=== PATIENT | female | born 1950 | race Caucasian/White ===

== ENCOUNTER → 2019-06-27 | Outpatient (REF) | payer BC | LOC: M LAB REF 18:19 | PROVIDERS: ATTEND Internal Medicine Endocrinology, Diabetes & Metabolism | DX: E04.1 Nontoxic single thyroid nodule (principal) ==

== ENCOUNTER → 2021-08-05 | Outpatient (CLI) | payer MEDICARE ==
[~2021-08-05] MED LIST: ALEN70TA82 PO; CEFD1CAP8 PO; HYDR-3713 PO; OXYB5TAB10 PO; POTA10808 PO; PYRI1TAB5 PO; TAMS1CAP17 PO
--- NOTE | 2021-08-05 13:11 | REP ---
INDICATION: CALCULUS OF KIDNEY *LABS 1ST, EKG 2ND, XRAY 3RD*. COMPARISON: PA and lateral chest, 04/11/2014. TECHNIQUE: Upright PA and lateral chest images were obtained. FINDINGS: There is cardiomegaly and aortic ectasia consistent with benign essential hypertension. The lungs are clear. There is an azygous lobe, as a normal variant of the upper lobe of the right lung. The upper abdominal bowel gas pattern is normal. There is mild multilevel degenerative disc disease of the thoracic spine. IMPRESSION: Findings consistent with hypertension. No evidence of acute cardiopulmonary pathology. <Electronically signed by Nadeem Barbosa > 08/05/21 [id number]
[2021-08-05 13:25] LABS: BASO % 0.4 % (0.0-1.0); EOS # 0.2 10^3/uL (0.0-0.5); EOS % 3.2 % (0.0-3.0); HEMATOCRIT 42.4 % (36.0-47.0); HEMOGLOBIN 14.4 g/dl (12.0-15.5); LYMPH # 1.3 10^3/uL (1.5-5.0); LYMPH % 23.6 % (24.0-44.0); MEAN CORPUSCULAR HEMOGLOBIN 30.5 pg (27.0-33.0); MEAN CORPUSCULAR VOLUME 89.8 fl (80.0-96.0); MONO # 0.3 10^3/uL (0.0-0.8); MONO % 6.4 % (2.0-8.0); NEUTROPHILS # 3.5 10^3/uL (1.5-8.5); PLATELET COUNT, AUTOMATED 238 10^3/uL (150-450); RED BLOOD COUNT 4.72 10^6/uL (4.00-5.40); WHITE BLOOD COUNT 5.3 10^3/uL (4.0-10.0)
--- NOTE | 2021-08-05 13:45 | ECGEPIP ---
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
[2021-08-05 13:54] LABS: ALBUMIN 3.8 GM/DL (3.2-5.2); ALT/SGPT 19 U/L (12-78); BILIRUBIN,TOTAL 0.7 MG/DL (0.2-1.0); BLOOD UREA NITROGEN 23 MG/DL (7-18); CALCIUM LEVEL 9.2 MG/DL (8.8-10.2); CARBON DIOXIDE LEVEL 27 MEQ/L (21-32); CHLORIDE LEVEL 110 MEQ/L (98-107); GLOMERULAR FILTRATION RATE > 60.0 (>39); GLUCOSE, FASTING 96 MG/DL (70-100); SODIUM LEVEL 143 MEQ/L (136-145); TOTAL PROTEIN 7.1 GM/DL (6.4-8.2)
== END ==
LOC: M LAB 12:30
PROVIDERS: ATTEND Urology
DX: N20.0 Calculus of kidney (principal); I10 Essential (primary) hypertension
CPT/HCPCS: 36415; 71046; 80053; 85025; 93005; G0463

== ENCOUNTER 2021-08-06 14:40 | Day surgery (SDC) | payer MEDICARE ==
[~2021-08-06] VITALS: Ht 157.5 cm; Wt 53.0 kg
[2021-08-06] MEDS ORDERED: TAMS1CAP17 PO (15:05)
[2021-08-06] MEDS ORDERED: CEFD1CAP8 PO (15:05)
[2021-08-06] MEDS ORDERED: MORPHINE 2 MG/ML 1ML VIAL (J2270) IV ONE (15:40)
[2021-08-06] MEDS ORDERED: LR 1,000 ML IV ONE (15:40)
[2021-08-06] MEDS ORDERED: SCOPOLAMINE 1MG TRANSDERMAL PATCH TOP ONE (15:40)
[2021-08-06] MEDS ORDERED: MIDAZOLAM INJ 2MG/2ML VIAL (J2250 PER 1MG) As Ordered ONE (15:54)
[2021-08-06] MEDS ORDERED: fentaNYL 100 MCG/2 ML INJECTION (J3010) As Ordered ONE (15:55)
[2021-08-06] MEDS ORDERED: propofoL 200 MG/20 ML VIAL As Ordered ONE (16:00)
[2021-08-06] MEDS ORDERED: CONRAY-60 60% 50ML VIAL (Q9961) As Ordered ONE (16:02)
[2021-08-06] MEDS ORDERED: CIPROFLOXACIN 400 MG in IV 1 EA IV ONE (16:15)
[2021-08-06] MEDS ORDERED: ROCURONIUM BROMIDE 50 MG/5 ML VIAL As Ordered ONE (16:28)
[2021-08-06] MEDS ORDERED: LIDOCAINE 2% 100MG/5ML SDV (FOR ANES.) As Ordered ONE (16:28)
[2021-08-06] MEDS ORDERED: ACETAMINOPHEN 1000MG 100ML IV BTL (OFIRMEV) (J0131 PER 10MG) As Ordered ONE (16:29)
[2021-08-06] MEDS ORDERED: ePHEDrine SULFATE 25 MG/5 ML(5MG/ML) SYRINGE As Ordered ONE (16:34)
[2021-08-06] MEDS ORDERED: dexameTHASONE 4 MG/ML 1ML VIAL (J1100 PER 1MG) As Ordered ONE (16:35)
[2021-08-06] MEDS ORDERED: ONDANSETRON 4MG/2ML VIAL As Ordered ONE (16:35)
--- NOTE | 2021-08-06 17:02 | REP ---
INDICATION: BILATERAL STENT PLACEMENT. COMPARISON: None. TECHNIQUE: Four views. 27 seconds of fluoroscopy time is reported. FINDINGS: A sequence of 4 last image hold fluoroscopically obtained spot radiographs of the abdomen document bilateral ureteral cannulation, contrast injection, and stent placement. IMPRESSION: Procedural imaging. <Electronically signed by Pradeep Jones > 08/06/21 [id number]
[2021-08-06] MEDS ORDERED: HYDR-3713 PO (17:04)
[2021-08-06] MEDS ORDERED: OXYB5TAB10 PO (17:04)
[2021-08-06] MEDS ORDERED: PYRI1TAB5 PO (17:04)
[2021-08-06] MEDS ORDERED: ONDANSETRON 4MG/2ML VIAL IV PRN (17:25)
[2021-08-06] MEDS ORDERED: LR 1,000 ML IV SCH ×2 (17:25)
[2021-08-06] MEDS ORDERED: oxyCODONE 5MG TAB PO PRN (17:25)
[2021-08-06 17:50] VITALS: BP 121/78
--- NOTE | 2021-08-12 14:20 | ROOPDOC ---
[facility] Report Of Operation Report of Operation DATE OF PROCEDURE: 08/12/21 PREPROCEDURE DIAGNOSES: [Bilateral renal stones, right ureteral stones, bilateral hydronephrosis]. POSTPROCEDURE DIAGNOSES: [Same]. PROCEDURE PERFORMED: [Cystoscopy, fluoroscopy, bilateral retrograde pyelography, bilateral ureteral stent placement, right rigid ureteroscopy with laser lithotripsy and basket stone extraction]. SURGEON: [Mehrdad Bush, MANAGER INCOME TAX: [None], MD ANESTHESIA: [General]. ESTIMATED BLOOD LOSS: Approximately [minimal] mL. COMPLICATIONS: [None]. REMARKS: [70-year-old white female. History of stones. Was seen in the office by Dr. Mccoy. Pain on the right side. CT demonstrated bilateral hydronephrosis, bilateral UPJ stones and right ureteral stones. Surgery was arranged. No guarantees were given. Risks were discussed such as infection, bleeding, pain, scarring, injury to urinary tract, failure of surgery, need for more surgery and others. Informed consent was obtained.]. FINDINGS: SPECIMENS REMOVED: [Right ureteral stone] PROCEDURE NOTE: . DESCRIPTION OF PROCEDURE: [I met with the patient in the preop area before surgery. She was still having pain on the right side. Informed consent obtained. Questions answered. Patient wished to proceed. Patient brought to the OR room. Supine position at first. General anesthesia secured without difficulty. Dorsal lithotomy position then. Well padded. Prepping and draping in the usual sterile fashion. Timeout performed. Surgery done under antimicrobial coverage. Cystoscopy was performed with a rigid cystoscope. No stone in the bladder. A retrograde pyelogram was obtained on the left under fluoroscopic guidance. Contrast was injected gently with a 5 Surinamese open-ended ureteral catheter. After opacifying the system, a 6 Surinamese stent was placed using the Seldinger technique. No trouble in passing the wire up the ureter. Attention was then directed to the right side. Another retrograde pyelogram was obtained. Contrast was injected gently using a 5 Surinamese open-ended ureteral catheter. Such was done under fluoroscopic guidance. After this a wire was advanced up the ureter as seen using fluoroscopy. With the wire in place as a safety wire, rigid ureteroscopy was performed. Multiple stones were encountered in the ureter. Laser lithotripsy was needed. Fragments were extracted with a stone basket. Specimen was collected and handed off. I passed the ureteroscope to the renal pelvis. No stones remained at the end. Using the Seldinger technique a 6 Surinamese stent was placed. Proper positioning was confirmed using fluoroscopy and direct vision. Patient tolerated everything well left the room in satisfactory condition. Plan is ESWL one side followed by the other.]. WAYNE BUSH MD Aug 12, 2021 14:20
[2021-08-13 10:08] LABS: CA Oxalate Dihy 90 % (.); Ca Ox Monohydrate 10 % (.); Size 2x2 mm (.)
== END 2021-08-06 18:27 | disposition home or self-care (01) ==
LOC: M SDC 14:40
PROVIDERS: ATTEND Urology
DX: N13.2 Hydronephrosis with renal and ureteral calculous obstruction (principal); Z91.040 Latex allergy status
CPT/HCPCS: 52332; 52356; 74420; 82365; 88300; C1769; C2617; J0131; J0744; J1100; J2250; J2270; J2405; J3010; Q9961; U0002

== ENCOUNTER → 2021-08-16 | Outpatient (CLI) | payer MEDICARE ==
[~2021-08-16] MED LIST changes: -ALEN70TA82 PO; -POTA10808 PO
== END ==
LOC: M LABSMTC 11:05
PROVIDERS: ATTEND Anesthesiology
DX: Z01.812 Encounter for preprocedural laboratory examination (principal); Z20.822 Contact with and (suspected) exposure to COVID-19

== ENCOUNTER 2021-08-19 12:00 | Day surgery (SDC) | payer MEDICARE ==
[~2021-08-19] VITALS: Ht 154.9 cm; Wt 53.4 kg
[~2021-08-19 12:00] MED LIST changes: +CIPROFLOXACIN 400 MG in IV 1 EA IV ONE; +LIDOCAINE 1% MDV 20ML VIAL SQ PRN; +LIDOCAINE 2% 100MG/5ML SDV (FOR ANES.) As Ordered ONE; +LR 1,000 ML IV ONE; +MIDAZOLAM INJ 2MG/2ML VIAL (J2250 PER 1MG) As Ordered ONE; +ONDANSETRON 4MG/2ML VIAL As Ordered ONE; +dexameTHASONE 4 MG/ML 1ML VIAL (J1100 PER 1MG) As Ordered ONE; +fentaNYL 100 MCG/2 ML INJECTION (J3010) As Ordered ONE; +propofoL 200 MG/20 ML VIAL As Ordered ONE
--- NOTE | 2021-08-19 12:29 | REP ---
INDICATION: KUB BEFORE SDC. COMPARISON: KUB obtained 08/06/2021 using a portable C-arm device during bilateral retrograde pyelography and stent placement. FINDINGS: Bilateral pigtail stents are again identified and are essentially unchanged. The proximal portion of each is in the region of the renal pelvis respectively in the distal portion of each is in the region of the urinary bladder. Bilateral calcifications are seen superimposed over each nephric silhouette in a limited fashion on this KUB exam. No definite abnormal calcifications are seen along the course of either pigtail stent. The intestinal gas pattern is nonspecific. The osseous structures are within normal limits for the patient's age. IMPRESSION: As above <Electronically signed by Dejon Bonilla > 08/19/21 [id number]
--- NOTE | 2021-08-19 13:59 | ROOPDOC ---
[facility] Report Of Operation Report of Operation DATE OF PROCEDURE: 08/19/21 PREPROCEDURE DIAGNOSES: [bl upj stones, bl ureteral stents]. POSTPROCEDURE DIAGNOSES: [same]. PROCEDURE PERFORMED: [right upj stone eswl]. SURGEON: [Mehrdad Bush, HOGSHEAD HEAD MATCHER: [none], ANESTHESIA: [mac]. ESTIMATED BLOOD LOSS: Approximately [0] mL. COMPLICATIONS: [none]. REMARKS: [70yo wf. Right ureteral stones recently addressed and now pt is left with bl upj stones, right > left. Right 1cm. Bl stents in place. Eswl right side today. D/w pt in preop area and we agreed that the right side is the co rrect side. No guarantees given. Risks discussed including infection, pain, bleeding, scarring, failure of surgery, need for more surgery, injury to gu tract and others. Possible cysto with right stent removal depending upon results of eswl. Informed consent obtained.]. FINDINGS: SPECIMENS REMOVED: [none] PROCEDURE NOTE: . DESCRIPTION OF PROCEDURE: [Met with pt in preop area. Surgery again discussed. Right side agreed upon. Pt wishe to proceed. Pt brought to OR room. Supine on lithotripter. Well padded. Mac anesthesia started. Time out performed. Surgery done under iv antibiotic. Fluoroscopy used to locate stone. Seemed to be in lower pole. Fluoroscopy used intermittently. 2500 shocks delivered. Stone seemed to fragment at least somewhat. Pt tolerated all well and left in satisfactory condition. home, has pain med already, oxybutynin and Pyridium called in, potassium citrate started next step is left upj stone eswl]. WAYNE UBSH MD Aug 19, 2021 13:59
[2021-08-19] MEDS ORDERED: OXYB5TAB10 PO (14:04)
[2021-08-19] MEDS ORDERED: POTA10808 PO (14:04)
[2021-08-19] MEDS ORDERED: PYRI1TAB5 PO (14:04)
[2021-08-19] MEDS ORDERED: ePHEDrine SULFATE 25 MG/5 ML(5MG/ML) SYRINGE As Ordered ONE (14:14)
[2021-08-19 15:45] VITALS: BP 97/56
== END 2021-08-19 16:00 | disposition home or self-care (01) ==
LOC: M SDC 12:00
PROVIDERS: ATTEND Urology
DX: N20.0 Calculus of kidney (principal); Z91.040 Latex allergy status
CPT/HCPCS: 50590; 74018; J1100; J2250; J2405; J3010

== ENCOUNTER → 2021-08-28 | Outpatient (CLI) | payer MEDICARE ==
[~2021-08-28] MED LIST changes: +ALEN70TA82 PO; -CIPROFLOXACIN 400 MG in IV 1 EA IV ONE; -LIDOCAINE 1% MDV 20ML VIAL SQ PRN; -LIDOCAINE 2% 100MG/5ML SDV (FOR ANES.) As Ordered ONE; -LR 1,000 ML IV ONE; -MIDAZOLAM INJ 2MG/2ML VIAL (J2250 PER 1MG) As Ordered ONE; -ONDANSETRON 4MG/2ML VIAL As Ordered ONE; +POTA10808 PO; -dexameTHASONE 4 MG/ML 1ML VIAL (J1100 PER 1MG) As Ordered ONE; -fentaNYL 100 MCG/2 ML INJECTION (J3010) As Ordered ONE; -propofoL 200 MG/20 ML VIAL As Ordered ONE
== END ==
LOC: M LABSMTC 10:08
PROVIDERS: ATTEND Anesthesiology
DX: Z01.818 Encounter for other preprocedural examination (principal); Z11.52 Encounter for screening for COVID-19

== ENCOUNTER 2023-08-15 09:48 | Emergency (ER) | payer MEDICARE ==
[~2023-08-15] VITALS: Ht 157.5 cm; Wt 53.1 kg
[~2023-08-15 09:48] MED LIST changes: -CEFD1CAP8 PO; +CEFD300C41 PO
[2023-08-15] MEDS ORDERED: METH-1164 (13:08)
[2023-08-15] MEDS ORDERED: diazePAM 10MG/2ML SYRINGE IV ONE (14:40)
[2023-08-15 14:41] VITALS: TEMP 97.6; O2SAT 98
[2023-08-15 14:46] VITALS: BP 172/92
[2023-08-15 15:07] LABS: BASO % 0.1 % (0.0-1.0); HEMATOCRIT 43.2 % (36.0-47.0); HEMOGLOBIN 14.6 g/dl (12.0-15.5); LYMPH # 0.9 10^3/uL (1.5-5.0); LYMPH % 8.5 % (24.0-44.0); MEAN CORPUSCULAR HEMOGLOBIN 30.2 pg (27.0-33.0); MEAN CORPUSCULAR HGB CONC 33.8 g/dl (32.0-36.5); MEAN CORPUSCULAR VOLUME 89.3 fl (80.0-96.0); MONO # 0.8 10^3/uL (0.0-0.8); MONO % 8.2 % (2.0-8.0); NEUTROPHILS # 8.5 10^3/uL (1.5-8.5); NEUTROPHILS % 82.8 % (36.0-66.0); PLATELET COUNT, AUTOMATED 228 10^3/uL (150-450); RED BLOOD COUNT 4.84 10^6/uL (4.00-5.40); WHITE BLOOD COUNT 10.3 10^3/uL (4.0-10.0)
[2023-08-15 15:16] LABS: ERYTHROCYTE SEDIMENTATION RATE 57 mm/hr (0-30)
[2023-08-15 15:31] LABS: BLOOD UREA NITROGEN 12 MG/DL (9-23); CALCIUM LEVEL 9.1 MG/DL (8.3-10.6); CARBON DIOXIDE LEVEL 27 MMOL/L (20-31); CHLORIDE LEVEL 106 MMOL/L (98-107); CREATININE FOR GFR 0.58 MG/DL (0.55-1.30); GLOMERULAR FILTRATION RATE > 60.0 (>39); GLUCOSE, FASTING 134 MG/DL (74-106); POTASSIUM SERUM 3.8 MMOL/L (3.5-5.1); SODIUM LEVEL 139 MMOL/L (136-145)
[2023-08-15] MEDS ORDERED: KETOROLAC 30 MG/ML 1ML VIAL IV ONE (16:10)
[2023-08-15] MEDS ORDERED: methylPREDNISolone 125MG 2ML VIAL IV ONE (16:45)
[2023-08-15] MEDS ORDERED: PRED20TA PO (16:56)
== END 2023-08-15 17:09 | disposition home or self-care (01) ==
LOC: M ED 09:48
DX: S16.1XXA Strain of muscle, fascia and tendon at neck level, initial encounter (principal); X58.XXXA Exposure to other specified factors, initial encounter; Y92.89 Other specified places as the place of occurrence of the external cause; Y93.89 Activity, other specified; Y99.8 Other external cause status; I10 Essential (primary) hypertension; Z87.442 Personal history of urinary calculi; Z91.040 Latex allergy status; Z79.899 Other long term (current) drug therapy
CPT/HCPCS: 72125; 72128; 80048; 85025; 85652; 86140; 96374; 96375; 99284; J1885; J2930; J3360